=== PATIENT | male | born 1985 | race African-American/Black ===

== ENCOUNTER 2017-12-29 10:12 | Emergency (ER) | payer OTHER ==
[2017-12-29] MEDS: KETOROLAC 30 MG/ML VIAL (J1885) IV (11:14)
[2017-12-29] MEDS: ONDANSETRON 4MG/2ML VIAL (J2405) IV (11:14)
[2017-12-29 11:19] LABS: BASO % 0.2 % (0.0-1.0); EOS # 0.1 10^3/uL (0.0-0.50); EOS % 1.9 % (0.0-3.0); HEMATOCRIT 50.1 % (42.0-52.0); HEMOGLOBIN 15.7 g/dl (13.5-17.5); IMMATURE GRANULOCYTE % 0.2 % (0-3.0); LYMPH # 0.9 10^3/uL (1.5-4.5); LYMPH % 14.1 % (24.0-44.0); MEAN CORPUSCULAR HGB CONC 31.3 g/dl (32.0-36.5); MEAN CORPUSCULAR VOLUME 83.1 fl (80.0-96.0); MONO # 0.4 10^3/uL (0.0-0.8); MONO % 6.7 % (0.0-5.0); NEUTROPHILS # 4.9 10^3/uL (1.8-7.7); NEUTROPHILS % 76.9 % (36.0-66.0); PLATELET COUNT, AUTOMATED 316 10^3/uL (150-450); RED BLOOD COUNT 6.03 10^6/uL (4.30-6.10); RED CELL DISTRIBUTION WIDTH 14.6 % (11.5-14.5); WHITE BLOOD COUNT 6.4 10^3/uL (4.0-10.0)
[2017-12-29] MEDS: NS 1,000 ML IV (12:15)
[2017-12-29] MEDS: GI COCKTAIL 50ML BTL(HYOSCYAMINE/MAALOX/LIDOCAINE VISCOUS)(1:3:1) PO (12:15)
== END 2017-12-29 12:59 | disposition home or self-care (01) ==
LOC: M ED 10:12
DX: E86.0 Dehydration (principal); K04.7 Periapical abscess without sinus; R42 Dizziness and giddiness; J45.909 Unspecified asthma, uncomplicated; Z91.018 Allergy to other foods; Z79.899 Other long term (current) drug therapy; Z79.2 Long term (current) use of antibiotics
CPT/HCPCS: J2405